=== PATIENT | female | born 1980 | race Caucasian/White ===

== ENCOUNTER 2019-04-24 09:51 | Inpatient (IN) | payer OTHER ==
[2019-04-24 10:15] VITALS: BMI 20.5
--- NOTE | 2019-04-24 11:02 | HP ---
COWS - Scale Resting Pulse: 1= MD 81-100 Sweatin=Flushed/Facial Moisture Restless Observation: 1= Difficult to Sit Still Pupil Size: 0= Normal to Room Light Bone or Joint Aches: 2= Severe Diffuse Aches Runny Nose/ Eye Tearin= Runny Nose/Eyes GI Upset > 30mins: 2= Nausea/Diarrhea Tremor Observation: 1= Tremor [place], Not Seen Yawning Observation: 1= 1-2x During Session Anxiety or Irritability: 4=Extreme Anxiety Goose Flesh Skin: 0=Smooth Skin COWS Score: 16 CIWA Score Nausea/Vomitin-Int. Nausea w/Dry Heave Muscle Tremors: 2 Anxiety: 4-Mod. Anxious/Guarded Agitation: 2 Paroxysmal Sweats: 2 Orientation: 0-Oriented Tacttile Disturbances: 1-Very Mild Itch/Numbness Auditory Disturbances: 0-None Visual Disturbances: 1-Very Mild Sensitivity Headache: 2-Mild CIWA-Ar Total Score: 18 - Admission Criteria OASAS Guidelines: Admission for Medically Managed Detox: Requires at least one of the followin. CIWA greater than 12 2. Seizures within the past 24 hours 3. Delirium tremens within the past 24 hours 4. Hallucinations within the past 24 hours 5. Acute intervention needed for co occurring medical disorder 6. Acute intervention needed for co occurring psychiatric disorder 7. Severe withdrawal that cannot be handled at a lower level of care (continued vomiting, continued diarrhea, abnormal vital signs) requiring intravenous medication and/or fluids 8. Patient presents the following: CIWA greater than 12 Admission Criteria Met: Admission criteria met Admitting History and Physical - Admission Chief Complaint: heroin detox History of Present Illness: Patient is a 38 yo female, domicile, with eight year history of opioid dependence is here seeking inpatient detox d/t withdrawal sx after as per patient she was evaluated at [facility] and was referred to this facility.Patient reports currently uses fifteen bags of heroin per day, last use yesterday. Patient reports hx of unintentional over dose x2 with last episode one year ago. Reports hx of benzo withdrawal seizure with last episode six years ago. PMHX: asthma. Psych: depression, anxiety. Denies SI/HI or hx of suicide attempt. History Source: Patient Limitations to Obtaining History: No Limitations Admission ROS S - HPI Allergies/Adverse Reactions: Allergies Allergy/AdvReac Type Severity Reaction Status Date / Time No Known Allergies Allergy Verified 04/24/19 10:03 Exam Limitations: No Limitations - Ebola screening Have you traveled outside of the country in the last 21 days: No (N) Have you had contact with anyone from an Ebola affected area: No Do you have a fever: No - Review of Systems Constitutional: Changes in sleep, Weakness, Other (anxious) EENT: reports: Nose Congestion Respiratory: reports: No Symptoms reported Cardiac: reports: No Symptoms Reported GI: reports: Nausea, Poor Fluid Intake, Vomiting, Abdominal cramping : reports: No Symptoms Reported Musculoskeletal: reports: Back Pain, Joint Pain Integumentary: reports: No Symptoms Reported Neuro: reports: Headache Endocrine: reports: No Symptoms Reported Hematology: reports: No Symptoms Reported Psychiatric: reports: Orientated x3, Anxious Other Systems: Reviewed and Negative Patient History - Patient Medical History Hx Anemia: No Hx Asthma: Yes Hx Chronic Obstructive Pulmonary Disease (COPD): No Hx Cancer: No Hx Cardiac Disorders: No Hx Congestive Heart Failure: No Hx Hypertension: No Hx Hypercholesterolemia: No Hx Pacemaker: No HX Cerebrovascular Accident: No Hx Seizures: No Hx Dementia: No Hx Diabetes: No Hx Gastrointestinal Disorders: No Hx Liver Disease: No Hx Genitourinary Disorders: No Hx Sexually Transmitted Disorders: No Hx Renal Disease (ESRD): No Hx Thyroid Disease: No Hx Human Immunodeficiency Virus (HIV): No Hx Hepatitis C: No Hx Depression: Yes Hx Suicide Attempt: No Hx Bipolar Disorder: No Hx Schizophrenia: No - Patient Surgical History Past Surgical History: No - PPD History Previous Implant?: No Documented Results: Negative w/o proof PPD to be Administered?: Yes - Reproductive History Patient is a Female of Child Bearing Age (11 -55 yrs old): Yes (last mentrual one year ago ) Patient : No - Smoking Cessation Smoking history: Current every day smoker Have you smoked in the past 12 months: Yes Aproximately how many cigarettes per day: 20 Hx Chewing Tobacco Use: No Initiated information on smoking cessation: Yes 'Breaking Loose' booklet given: 04/24/19 - Substance & Tx. History Hx Alcohol Use: No Hx Substance Use: Yes Substance Use Type: Cocaine, Heroin, Tranquilizers Hx Substance Use Treatment: Yes ([facility] 2013 detox ) - Substances abused Heroin Substance route: Injection Frequency: Daily Amount used: 15 bags/day Age of first use: 36 Date of last use: 04/23/19 Other Other (specify): Ativan 2mg Substance route: Oral Frequency: Daily Amount used: 2mg x 4 per day Age of first use: 28 Date of last use: 04/24/19 Admission Physical Exam [facility] - Vital Signs Vital Signs: Vital Signs - 24 hr 04/24/19 10:00 Temperature 97.8 F Pulse Rate 85 Respiratory 18 Rate Blood Pressure 118/73 - Physical General Appearance: Yes: Disheveled, Mild Distress, Thin, Sweating, Anxious HEENTM: Yes: EOMI, Hearing grossly Normal, Normal ENT Inspection, Normocephalic , Normal Voice, ADINA, Pharynx Normal, Tm's normal, Rhinorrhea Respiratory: Yes: Chest Non-Tender, Lungs Clear, No Respiratory Distress, No Accessory Muscle Use, Wheezing Neck: Yes: No masses,lesions,Nodules, Trachea in good position Breast: Yes: Breast Exam Deferred Cardiology: Yes: Regular Rhythm, Regular Rate Abdominal: Yes: Normal Bowel Sounds, Non Tender, Flat, Soft Genitourinary: Yes: Within Normal Limits Back: Yes: Normal Inspection Musculoskeletal: Yes: full range of Motion, Gait Steady, Pelvis Stable Extremities: Yes: Normal Capillary Refill, Normal Inspection, Normal Range of Motion, Non-Tender Neurological: Yes: peace officer II-XII NML intact, Fully Oriented, Alert, Motor Strength 5/5, Depressed Affect Integumentary: Yes: Normal Color, Warm, Diaphoresis, Track Ramirez (bilateral forearms, no cellulitis present) Lymphatic: Yes: Within Normal Limits - Diagnostic (1) Opioid dependence with withdrawal Current Visit: Yes Status: Acute (2) Asthma Current Visit: Yes Status: Chronic Qualifiers: Asthma severity: mild Asthma persistence: intermittent Asthma complication type: uncomplicated Qualified Code(s): J45.20 - Mild intermittent asthma, uncomplicated (3) Sedative, hypnotic or anxiolytic dependence with withdrawal, uncomplicated Current Visit: Yes Status: Acute (4) Nicotine dependence Current Visit: Yes Status: Acute Qualifiers: Nicotine product type: cigarettes Substance use status: uncomplicated Qualified Code(s): F17.210 - Nicotine dependence, cigarettes, uncomplicated Cleared for Admission [facility] - Detox or Rehab [facility] Level of Care: Medically Managed Detox Regimen/Protocol: Methadone/Valium Breathalyzer - Breathalyzer Breathalyzer: 0 Urine Drug Screen - Test Device Lot number: [id number] Expiration date: 12/20/20 - Control Is test valid?: Yes - Results Drug screen NEGATIVE: No Urine drug screen results: JESSICA-Cocaine, MOP-Opiates, BZO-Benzodiazepines Inpatient Rehab Admission - Rehab Decision to Admit Inpatient rehab admission?: No
[2019-04-24] MEDS ORDERED: cloNIDine HCL 0.1 MG TABLET PO PRN (11:09)
[2019-04-24] MEDS ORDERED: BISMUTH SUBSALICYLATE 524 MG/30 ML UD PO PRN (11:18)
[2019-04-24] MEDS ORDERED: IBUPROFEN 400 MG TABLET (FP) PO PRN (11:18)
[2019-04-24] MEDS ORDERED: NICOTINE POLACRILEX 2 MG GUM BUC PRN (11:18)
[2019-04-24] MEDS ORDERED: ACETAMINOPHEN 325 MG TABLET (FP) PO PRN ×2 (11:18)
[2019-04-24] MEDS ORDERED: MAG HYDROX/AL HYDROX/SIMETH 30 ML UNIT-DOSE CUP PO PRN (11:18)
[2019-04-24] MEDS ORDERED: MELATONIN 5 MG TABLETS PO PRN (11:18)
[2019-04-24] MEDS ORDERED: MAGNESIUM HYDROX 2400MG/30ML ORAL SUSPENSION 30 ML CUP PO PRN (11:18)
[2019-04-24] MEDS ORDERED: MAGNESIUM CITRATE 300 ML BOTTLE PO PRN (11:18)
[2019-04-24] MEDS ORDERED: MENTHOL/PHENOL 1 EACH UD MM PRN (11:18)
[2019-04-24] MEDS ORDERED: ALBUTEROL SO4 8 GM HFA INHALER IH PRN (11:32)
[2019-04-24] MEDS ORDERED: METHADONE HCL 10 MG TABLET (FOR DETOX USE ONLY) PO ONE (12:00)
[2019-04-24] MEDS: diazePAM 5 MG TABLET PO PRN (12:34)
[2019-04-24] MEDS: diazePAM 5 MG TABLET PO SCH ×2 (14:02→22:37)
[2019-04-24] MEDS: THIAMINE HCL 100 MG TABLET (FP) PO SCH (22:37)
[2019-04-24] MEDS: METHOCARBAMOL 500 MG TABLET PO PRN (22:38)
[2019-04-25] MEDS: diazePAM 5 MG TABLET PO PRN ×3 (01:06→17:36)
[2019-04-25] MEDS: hydrOXYzine PAMOATE 25 MG CAPSULE (FP) PO PRN (02:09)
[2019-04-25] MEDS: METHOCARBAMOL 500 MG TABLET PO PRN ×4 (03:24→22:39)
[2019-04-25] MEDS: diazePAM 5 MG TABLET PO SCH ×3 (06:44→22:39)
[2019-04-25] MEDS ORDERED: METHADONE HCL 10 MG TABLET (FOR DETOX USE ONLY) ONE (08:17)
[2019-04-25] MEDS ORDERED: METHADONE HCL 5 MG TABLET (FOR DETOX USE ONLY) ONE (08:18)
[2019-04-25] MEDS: PRENATAL VITAMINS W/ FOLIC ACID TABLET (FP) PO SCH (09:14)
[2019-04-25] MEDS: NICOTINE 14 MG/24 HOURS TOPICAL PATCH TD SCH (09:14)
[2019-04-25 09:21] LABS: HEMATOCRIT 37.9 % (32.4-45.2); MCH 31.9 pg (25.7-33.7); MCHC 34.4 g/dl (32.0-36.0); MEAN CELL VOLUME 92.8 fl (80-96); MEAN PLT VOLUME 8.3 fl (7.5-11.1); PLATELET COUNT 366 K/MM3 (134-434); RBC 4.09 M/mm3 (3.60-5.2); RDW 15.7 % (11.6-15.6); WHITE BLOOD COUNT 6.3 K/mm3 (4.0-10.0)
--- NOTE | 2019-04-25 09:35 | PN ---
[facility] CIWA - CIWA Score Nausea/Vomitin-Mild Nausea/No Vomiting Muscle Tremors: 3 Anxiety: 4-Mod. Anxious/Guarded Agitation: 3 Paroxysmal Sweats: 2 Orientation: 1-Uncertain about Date (date of week) Tacttile Disturbances: 0-None Auditory Disturbances: 0-None Visual Disturbances: 0-None Headache: 1-Very Mild CIWA-Ar Total Score: 15 [facility] COWS - Scale Resting Pulse: 1= [place] 81-100 Sweatin= Chills/Flushing Restless Observation: 0= Sits Still Pupil Size: 0= Normal to Room Light Bone or Joint Aches: 2= Severe Diffuse Aches (treated with lidocaine) Runny Nose/ Eye Tearin= Nasal Congestion GI Upset > 30mins: 2= Nausea/Diarrhea (no diarrhea "gassy") Tremor Observation of Outstretched Hands: 2= Slight Tremor Visible Yawning Observation: 1= 1-2x During Session Anxiety or Irritability: 2=Irritable/Anxious Goose Flesh Skin: 3=Piloerection COWS Score: 15 [facility] Progress Note (SOAP) Subjective: 38 years old female admitted on 04/24/19 for alcohol and opiate withdrawal sx management treated with valium and methadone detox regimen patient tolerate well c/o chronic back pain treated with robaxin and lidocaine patch patient request methadone 100 mg po for opiate withdrawal sx health teaching on risks of 100mg of methadone patient request xanax that she is prescribed by the MD patient requests continue xanax prescription health teaching on risks of benzo of respiratory suppressant as well as withdrawal seizure c/o gi distress discontinue motrin begin pepcid and gas-x Objective: 04/25/19 09:35 Vital Signs Temperature 97.6 F 04/25/19 09:19 Pulse Rate 90 04/25/19 09:19 Respiratory Rate 20 04/25/19 09:19 Blood Pressure 122/68 04/25/19 09:19 O2 Sat by Pulse Oximetry (%) Laboratory Last Values WBC 6.3 K/mm3 (4.0-10.0) 04/25/19 07:50 RBC 4.09 M/mm3 (3.60-5.2) 04/25/19 07:50 Hgb 13.0 GM/dL (10.7-15.3) 04/25/19 07:50 Hct 37.9 % (32.4-45.2) 04/25/19 07:50 MCV 92.8 fl (80-96) 04/25/19 07:50 MCH 31.9 pg (25.7-33.7) 04/25/19 07:50 MCHC 34.4 g/dl (32.0-36.0) 04/25/19 07:50 RDW 15.7 % (11.6-15.6) H 04/25/19 07:50 Plt Count 366 K/MM3 (134-434) 04/25/19 07:50 MPV 8.3 fl (7.5-11.1) 04/25/19 07:50 lab noted Assessment: 04/25/19 09:36 alcohol and opiate withdrawal sx Plan: continue valium and methadone detox regimen gabapentin 300 mg po tid ensure 90ml bid po
[2019-04-25 09:39] LABS: ALBUMIN 3.7 g/dl (3.4-5.0); BILIRUBIN,TOTAL 0.3 mg/dL (0.2-1); BLOOD UREA NITROGEN 11.8 mg/dL (7-18); CALCIUM 9.3 mg/dL (8.5-10.1); POTASSIUM 4.8 mmol/L (3.5-5.1); TOT PROT 7.1 g/dl (6.4-8.2)
[2019-04-25] MEDS ORDERED: GABAPENTIN 300 MG CAPSULE (FP) PO ONE (10:00)
[2019-04-25] MEDS ORDERED: METHADONE (DETOX) 20 MG, METHADONE (DETOX) 5 MG PO ONE (10:00)
[2019-04-25] MEDS: FAMOTIDINE 20 MG TABLET PO SCH ×2 (10:16→22:39)
[2019-04-25] MEDS: LIDOCAINE 5% TOPICAL PATCH TP SCH (10:17)
[2019-04-25] MEDS: SIMETHICONE 80 MG TAB.CHEW (FP) PO SCH ×4 (10:17→23:00)
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
[2019-04-25] MEDS: GABAPENTIN 300 MG CAPSULE (FP) PO SCH ×2 (14:49→22:39)
[2019-04-25 16:34] LABS: EPI CELLS 30.1 /HPF (0-5/HPF); HYALINE CASTS 2 /lpf (0-8); PH,URINE 6.5 (5.0-8.0); URINE APPEARANCE CLOUDY; URINE BACTERIA 874.1 /hpf (NEGATIVE); URINE BILIRUBIN NEGATIVE (NEGATIVE); URINE COLOR YELLOW; URINE GLUCOSE (UA) NEGATIVE (NEGATIVE); URINE KETONE NEGATIVE (NEGATIVE); URINE LEUK ESTERASE TRACE (NEGATIVE); URINE NITRITE NEGATIVE (NEGATIVE); URINE PROTEIN NEGATIVE (NEGATIVE); URINE RBC 0 /hpf (0-4); URINE UROBILINOGEN 0.2 mg/dL (0.2-1.0); URINE WBC 8 /hpf (0-5)
[2019-04-25] MEDS ORDERED: LIDOCAINE PATCH REMOVAL MC SCH (22:00)
[2019-04-25] MEDS ORDERED: traZODone HCL 100 MG TABLET (FP) PO SCH (22:00)
[2019-04-25] MEDS: THIAMINE HCL 100 MG TABLET (FP) PO SCH (22:38)
[2019-04-26] MEDS: GABAPENTIN 300 MG CAPSULE (FP) PO SCH (05:26)
[2019-04-26] MEDS: METHOCARBAMOL 500 MG TABLET PO PRN (05:27)
[2019-04-26] MEDS: hydrOXYzine PAMOATE 25 MG CAPSULE (FP) PO PRN (05:27)
[2019-04-26] MEDS ORDERED: diazePAM 5 MG TABLET PO SCH (06:00)
[2019-04-26] MEDS ORDERED: METHADONE HCL 10 MG TABLET (FOR DETOX USE ONLY) PO ONE (10:00)
[2019-04-26] MEDS: SIMETHICONE 80 MG TAB.CHEW (FP) PO SCH (10:21)
[2019-04-26] MEDS: diazePAM 5 MG TABLET PO PRN (10:21)
[2019-04-26] MEDS: LIDOCAINE 5% TOPICAL PATCH TP SCH (10:21)
[2019-04-26] MEDS: FAMOTIDINE 20 MG TABLET PO SCH (10:21)
[2019-04-26] MEDS: PRENATAL VITAMINS W/ FOLIC ACID TABLET (FP) PO SCH (10:21)
[2019-04-26] MEDS: NICOTINE 14 MG/24 HOURS TOPICAL PATCH TD SCH (10:22)
--- NOTE | 2019-04-26 11:05 | EKG ---
Test Reason : Blood Pressure : / mmHG Vent. Rate : 081 BPM Atrial Rate : 081 BPM P-R Int : 168 ms QRS Dur : 080 ms QT Int : 364 ms P-R-T Axes : 058 085 067 degrees QTc Int : 422 ms NORMAL SINUS RHYTHM NORMAL ECG NO PREVIOUS ECGS AVAILABLE Confirmed by LORENA SESAY MD ([id number]) on 04/26/2019 11:04:33 AM Referred By: Confirmed By:LORENA SESAY MD
[2019-04-26 13:21] VITALS: BP 101/61; PULSE 79; TEMP 97.1
--- NOTE | 2019-04-26 15:27 | DS ---
[facility] Detox Discharge Summary Admission Date: 04/24/19 Discharge Date: 04/26/19 - History Present History: Alcohol Dependence, Opioid Dependence Additional Comments: 38 years old female admitted on 04/24/19 for alcohol and opiate withdrawal sx management treated with valium and methadone detox regimen patient is alert oriented x 3 denies suicidal ideation patient insists to leave the detox unit today that one facility offer 100 mg methadone for opiate detox patient request xanax 2 mg po tid that her xanax doctor prescribed for her monthly patient stated that she prefers return home to detox herself that she as "enough " ativan at home health teaching on risks of benzo mixed with methadone Pertinent Past History: patient refuse ciwa cows patient refuses exist physical examine patient insists leave detox against medical advice to home strong recommend medication assisted treatment program - Physical Exam Results Vital Signs: Vital Signs Temperature 97.1 F L 04/26/19 13:20 Pulse Rate 79 04/26/19 13:20 Respiratory Rate 19 04/26/19 13:20 Blood Pressure 101/61 04/26/19 13:20 O2 Sat by Pulse Oximetry (%) Pertinent Admission Physical Exam Findings: alcohol withdrawal sx Laboratory Last Values WBC 6.3 K/mm3 (4.0-10.0) 04/25/19 07:50 RBC 4.09 M/mm3 (3.60-5.2) 04/25/19 07:50 Hgb 13.0 GM/dL (10.7-15.3) 04/25/19 07:50 Hct 37.9 % (32.4-45.2) 04/25/19 07:50 MCV 92.8 fl (80-96) 04/25/19 07:50 MCH 31.9 pg (25.7-33.7) 04/25/19 07:50 MCHC 34.4 g/dl (32.0-36.0) 04/25/19 07:50 RDW 15.7 % (11.6-15.6) H 04/25/19 07:50 Plt Count 366 K/MM3 (134-434) 04/25/19 07:50 MPV 8.3 fl (7.5-11.1) 04/25/19 07:50 Sodium 142 mmol/L (136-145) 04/25/19 07:50 Potassium 4.8 mmol/L (3.5-5.1) 04/25/19 07:50 Chloride 104 mmol/L (98-107) 04/25/19 07:50 Carbon Dioxide 34 mmol/L (21-32) H 04/25/19 07:50 Anion Gap 5 MMOL/L (8-16) L 04/25/19 07:50 BUN 11.8 mg/dL (7-18) 04/25/19 07:50 Creatinine 1.0 mg/dL (0.55-1.3) 04/25/19 07:50 Est GFR (CKD-EPI)AfAm 83.94 04/25/19 07:50 Est GFR (CKD-EPI)NonAf 72.42 04/25/19 07:50 Random Glucose 82 mg/dL (74-106) 04/25/19 07:50 Calcium 9.3 mg/dL (8.5-10.1) 04/25/19 07:50 Total Bilirubin 0.3 mg/dL (0.2-1) 04/25/19 07:50 AST 30 U/L (15-37) 04/25/19 07:50 ALT 42 U/L (13-61) 04/25/19 07:50 Alkaline Phosphatase 93 U/L (45-117) 04/25/19 07:50 Total Protein 7.1 g/dl (6.4-8.2) 04/25/19 07:50 Albumin 3.7 g/dl (3.4-5.0) 04/25/19 07:50 Urine Color Yellow 04/25/19 10: Urine Appearance Cloudy 04/25/19 10:19 Urine pH 6.5 (5.0-8.0) 04/25/19 10:19 Ur Specific [place] 1.013 (1.010-1.035) 04/25/19 10:19 Urine Protein Negative (NEGATIVE) 04/25/19 10:19 Urine Glucose (UA) Negative (NEGATIVE) 04/25/19 10: Urine Ketones Negative (NEGATIVE) 04/25/19 10:19 Urine Blood Negative (NEGATIVE) 04/25/19 10:19 Urine Nitrite Negative (NEGATIVE) 04/25/19 10: Urine Bilirubin Negative (NEGATIVE) 04/25/19 10:19 Urine Urobilinogen 0.2 mg/dL (0.2-1.0) 04/25/19 10:19 Ur Leukocyte Esterase Trace (NEGATIVE) 04/25/19 10:19 Urine WBC (Auto) 8 /hpf (0-5) 04/25/19 10:19 Urine RBC (Auto) 0 /hpf (0-4) 04/25/19 10:19 Urine Casts (Auto) 2 /lpf (0-8) 04/25/19 10:19 U Epithel Cells (Auto) 30.1 /HPF (0-5/HPF) 04/25/19 10:19 Urine Bacteria (Auto) 874.1 /hpf (NEGATIVE) 04/25/19 10:19 RPR Titer Nonreactive (NONREACTIVE) 04/25/19 07:50 HIV 1&2 Antibody Screen Negative 04/25/19 07:50 HIV P24 Antigen Negative 04/25/19 07:50 lab noted - Treatment Hospital Course: Detox Protocol Followed, Responded well Patient has Accepted a Rehab Referral to: methadone assisted treatment program - Medication Discharge Medications: Ambulatory Orders Dextroamphetamine/Amphetamine [Adderall 10 mg Tablet] 30 mg PO BID 04/24/19 LORazepam [Ativan] 2 mg PO QID 04/24/19 Trazodone HCl 300 mg PO HS 04/24/19 - Diagnosis (1) Alcohol dependence with withdrawal, uncomplicated Status: Acute (2) Opioid dependence with withdrawal Status: Acute (3) Asthma Status: Chronic Qualifiers: Asthma severity: mild Asthma persistence: intermittent Asthma complication type: uncomplicated Qualified Code(s): J45.20 - Mild intermittent asthma, uncomplicated (4) Nicotine dependence Status: Acute Qualifiers: Nicotine product type: cigarettes Substance use status: in withdrawal Qualified Code(s): F17.213 - Nicotine dependence, cigarettes, with withdrawal - AMA Did Patient Leave Against Medical Advice: Yes
[2019-04-27] MEDS ORDERED: diazePAM 5 MG TABLET PO ONE (06:00)
[2019-04-27] MEDS ORDERED: METHADONE (DETOX) 10 MG, METHADONE (DETOX) 5 MG PO ONE (10:00)
[2019-04-28] MEDS ORDERED: METHADONE HCL 10 MG TABLET (FOR DETOX USE ONLY) PO ONE (10:00)
[2019-04-29] MEDS ORDERED: METHADONE HCL 5 MG TABLET (FOR DETOX USE ONLY) PO ONE (06:00)
== END 2019-04-26 13:45 | disposition left against medical advice (07) | DRG 770 ==
LOC: YASAS 09:51 → Y3N 11:24
PROVIDERS: ADMIT Allergy & Immunology; ATTEND Allergy & Immunology
PROC: HZ2ZZZZ Detoxification Services for Substance Abuse Treatment (ICD-10-PCS; principal; 2019-04-24)
DX: F11.23 Opioid dependence with withdrawal (principal); F13.230 Sedative, hypnotic or anxiolytic dependence with withdrawal, uncomplicated; F14.10 Cocaine abuse, uncomplicated; F17.213 Nicotine dependence, cigarettes, with withdrawal; F90.9 Attention-deficit hyperactivity disorder, unspecified type; F32.9 Major depressive disorder, single episode, unspecified; J45.20 Mild intermittent asthma, uncomplicated; M54.5 Low back pain; G89.29 Other chronic pain
CPT/HCPCS: 36415; 80053; 81003; 85027; 86593; 87389; 93005; 93010